=== PATIENT | male | born 1985 | race African-American/Black ===

== ENCOUNTER 2019-09-07 18:49 | Emergency (ER) | payer OTHER ==
[~2019-09-07] VITALS: Ht 175.3 cm; Wt 111.1 kg
--- NOTE | 2019-09-07 19:28 | PHYS DOC ---
Past History Past Medical History: No Pertinent History Past Surgical History: No Surgical History Smoking: Non-smoker Alcohol Use: Occasionally Drug Use: None Adult General Chief Complaint Chief Complaint: SHOULDER INJURY HPI HPI Patient is a 34-year-old male presents complaining of right, dominant, shoulder pain. Patient was bench pressing approximately 300 pounds shortly prior to arrival when he felt a pop in the shoulder. 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 Increased pain with movement. No numbness or tingling. Pain is moderate in intensity. No previous shoulder injury. No pain medicine has been taken at this time.[] Review of Systems Review of Systems Constitutional: Denies fever or chills [] Eyes: Denies change in visual acuity, redness, or eye pain [] HENT: Denies nasal congestion or sore throat [] Respiratory: Denies cough or shortness of breath [] Cardiovascular: No chest pain or palpitations[] GI: Denies abdominal pain, nausea, vomiting, bloody stools or diarrhea [] : Denies dysuria or hematuria [] Musculoskeletal: Denies back pain, see history of present illness[] Integument: Denies rash or skin lesions [] Neurologic: Denies headache, focal weakness or sensory changes [] Endocrine: Denies polyuria or polydipsia [] All other systems were reviewed and found to be within normal limits, except as documented in this note. Current Medications Current Medications Current Medications Medications (Trade) Dose Ordered Sig/[facility] Start Time Stop Time Status Last Admin Dose Admin Ketorolac Tromethamine (Toradol 30mg Vial) 30 mg 1X ONCE 09/07/19 19:30 09/07/19 19:31 UNV Physical Exam Physical Exam Constitutional: Well developed, well nourished, mild discomfort, non-toxic appearance. [] HENT: Normocephalic, atraumatic, bilateral external ears normal, oropharynx denise st, no oral exudates, nose normal. [] Eyes: PERRLA, EOMI, conjunctiva normal, no discharge. [] Neck: Normal range of motion, no tenderness, supple, no stridor. [] Cardiovascular:Heart rate regular rhythm, no murmur [] Lungs & Thorax: Bilateral breath sounds clear to auscultation [] Abdomen: Bowel sounds normal, soft, no tenderness, no masses, no pulsatile masses. [] Skin: Warm, dry, no erythema, no rash. [] Back: No tenderness, no CVA tenderness. [] Extremities: Right shoulder has diffuse tenderness in the anterior portion. No clavicular tenderness. Decreased active range of motion with both abduction as well as flexion. No elbow tenderness. Patient is distally neurovascularly intact. There is no step-off palpated on exam. The other 3 extremities show: No tenderness, no cyanosis, no clubbing, ROM intact, no edema. [] Neurologic: Alert and oriented X 3, normal motor function, normal sensory function, no focal deficits noted. [] Psychologic: Affect normal, judgement normal, mood normal. [] EKG EKG [] Radiology/Procedures Radiology/Procedures Three-view x-ray of the right shoulder shows no evidence of a fracture or dislocation.[] Course & Med Decision Making Course & Med Decision Making Pertinent Labs and Imaging studies reviewed. (See chart for details) ED course: Patient arrived, was placed in bed, and tolerated exam well. He was given IM ketorolac which improved his pain. He was transported to and from radiology with any consultations. After return the imaging findings, these were discussed with the patient voiced understanding. He was placed in a sling for comfort. He was distally neurovascularly intact after sling application. He was discharged in improved condition with all questions answered. Medical decision making: There is no evidence of a fracture or dislocation. No evidence of neurologic or vascular compromise. This may be a rotator cuff injury which can be further evaluated by MRI as an outpatient.[] Dragon Disclaimer Dragon Disclaimer This electronic medical record was generated, in whole or in part, using a voice recognition dictation system. Departure Departure: Impression: Primary Impression: Right shoulder injury Disposition: 01 HOME, SELF-CARE Condition: IMPROVED Referrals: MARISABEL CASTREJON MD (PCP) Follow-up in 2 days Patient Instructions: Shoulder Sprain, Sling Use After Injury or Surgery Additional Instructions: Follow-up with your primary care team in 2 days. You may have a torn rotator cuff or other soft tissue injury which will not show up on x-ray or CT scan. An MRI is the test of choice for this. We do not have an MRI available at [facility]. This can be arranged as an outpatient by her primary care team. Return to the ER if worsening pain, weakness, numbness, or any other concerns. Scripts Hydrocodone Bit/Acetaminophen (NORCO 5-325 TABLET) 1 Each Tablet 1 TAB PO Q4-6HRS for severe pain, #20 TAB Prov: DOYLE ESCALONA DO 09/07/19 Meloxicam (MELOXICAM) 7.5 Mg Tablet 7.5 MG PO DAILY for PAIN, #20 TAB Prov: DOYLE ESCALONA DO 09/07/19 Problem Qualifiers Primary Impression: Right shoulder injury Encounter type: initial encounter Qualified Codes: S49.91XA - Unspecified injury of right shoulder and upper arm, initial encounter DOYLE ESCALONA DO Sep 07, 2019 19:28
[2019-09-07] MEDS ORDERED: KETOROLAC 30 MG/ML VIAL. IM ONE (19:45)
[2019-09-07] MEDS ORDERED: HYDR-3165 PO (19:48)
[2019-09-07] MEDS ORDERED: MELO7.5T29 PO (19:48)
--- NOTE | 2019-09-07 20:13 | RAD ---
Exam: Right shoulder 3 views INDICATION: Amite a pop TECHNIQUE: Frontal view of the right shoulder with internal and extradural rotation and transscapular Y view. Comparisons: None FINDINGS: Bone mineralization is normal. No acute or healed fractures. Soft tissues are unremarkable. Joint spaces are well-maintained. IMPRESSION: No acute osseous abnormality. Electronically signed by: Tad French MD (09/07/2019 8:10 PM) [facility]
[2019-09-07 20:46] VITALS: BP 149/90
== END 2019-09-07 20:47 | disposition home or self-care (01) ==
LOC: ER 18:49
DX: S49.91XA Unspecified injury of right shoulder and upper arm, initial encounter (principal); X50.9XXA Other and unspecified overexertion or strenuous movements or postures, initial encounter; Y93.89 Activity, other specified; Y92.89 Other specified places as the place of occurrence of the external cause; Y99.8 Other external cause status
CPT/HCPCS: 73030; 96372; 99284; J1885